=== PATIENT | female | born 1970 | race Caucasian/White ===

== ENCOUNTER 2021-01-06 08:01 | Emergency (ER) | payer SELFPAY ==
--- NOTE | 2021-01-06 08:05 | EDM.PDOC ---
ED HPI GENERAL MEDICAL PROBLEM - General Chief Complaint: Upper Extremity Injury/Pain Stated Complaint: INJURY LEFT MIDDLE FINGER Time Seen by Provider: 01/06/21 08:03 Source of Information: Reports: Patient History Limitations: Reports: No Limitations - History of Present Illness INITIAL COMMENTS - FREE TEXT/NARRATIVE: 50-year-old female presents for injury to left middle finger. Patient notes that roughly 3 weeks ago she had a crush injury to the finger. She is noted worsening pain and swelling in the distal end of the finger ever since. Today she knocked it in the shower and the pain intensely increased. She is noticed a couple days of some pus draining. She denies fevers or systemic symptoms. middle finger, L hand Pain Score (Numeric/FACES): 5 - Related Data Allergies Allergy/AdvReac Type Severity Reaction Status Date / Time morphine Allergy Itching Verified 01/06/21 08:19 Penicillins Allergy Swelling Verified 01/06/21 08:19 Home Meds: Home Meds Acetaminophen/oxyCODONE [Percocet 325-5 MG] 1 each PO Q4H PRN 3 Days #12 tab 01/06/21 [Rx] Sulfamethoxazole/Trimethoprim [Bactrim Ds Tablet] 1 each PO BID 7 Days #14 tablet 01/06/21 [Rx] Review of Systems - Review of Systems Review Of Systems: Comprehensive ROS is negative, except as noted in HPI. ED EXAM, GENERAL - Physical Exam Exam: See Below Exam Limited By: No Limitations General Appearance: Alert, WD/WN, No Apparent Distress Ears: Hearing Grossly Normal Throat/Mouth: Normal Voice, No Airway Compromise Head: Atraumatic, Normocephalic Neck: Normal Inspection Respiratory/Chest: No Respiratory Distress, No Accessory Muscle Use Cardiovascular: Normal Peripheral Pulses Extremities: Normal Inspection, Other (tender, erythematous, swollen DIP of left 3rd digit consistent with felon abscess) Neurological: Alert, Normal Gait Psychiatric: Normal Affect, Normal Mood Skin Exam: Warm, Dry, Intact, Normal Color ED TRAUMA EXTREMITY PROCEDURES - I&D Site: Left DIP 3rd digit Skin Prep: Providone-Iodine (Betadine) Local Anesthesia: Lidocaine: 1% Plain Local Anesthetic Volume: 5cc, Other (digital block) Area Incised With: 11 Blade Drainage: Purulent, Bloody, Moderate Amount Probed to Break Up Loculations: Yes Packed With: None Sterile Dressing: Adhesive Dressing Complications: No Course - Vital Signs Last Recorded V/S: Last Vital Signs Temp 96.6 F L 01/06/21 08:09 Pulse 92 01/06/21 08:09 Resp 16 01/06/21 08:09 BP 100/73 01/06/21 08:09 Pulse Ox 100 01/06/21 08:09 - Orders/Labs/Meds Orders: Active Orders 24 hr Category Date Time Status Fingers Third Digit Lt F2 [CR] Stat Exams 01/06/21 08:03 Taken Meds: Medications Discontinued Medications Generic Name Dose Route Start Last Admin Trade Name Donal PRN Reason Stop Dose Admin Lidocaine HCl 10 ml 01/06/21 08:20 01/06/21 08:28 Lidocaine 1% 5 Ml Sdv INJECT 01/06/21 08: 10 ml ONETIME ONE Administration - Re-Assessments/Exams Free Text/Narrative Re-Assessment/Exam: 01/06/21 08:24 X-ray imaging will be reviewed. Will digitally block and drain the felon. Will discharge on antibiotics 01/06/21 08:37 See procedure note for felon drainage. Will discharge on antibiotics. Departure - Departure Time of Disposition: 08:37 Disposition: Home, Self-Care 01 Condition: Good Clinical Impression: Felon of finger of left hand - Discharge Information Prescriptions: Sulfamethoxazole/Trimethoprim [Bactrim Ds Tablet] 1 each PO BID 7 Days #14 tablet Instructions: Paronychia, [id number] Referrals: PCP,None [Primary Care Provider] - Forms: ED Department Discharge Additional Instructions: You presented with pain in your fingertips that is consistent with a felon. A felon is a type of abscess in the end of a fingertip. I am not sure why it is called a felon. It was incised and drained with a moderate amount of pus coming out of the finger. We put on a dressing for you and I recommend that you keep this area clean twice a day and change the dressing as needed. We have also given you some bacitracin that you can put on it to help prevent infection. I also sent an oral antibiotic to your pharmacy that you will need to take for the next 7 days to help with infection. I have also sent some pain medication for the next couple of days to help with pain. Unfortunately with abscesses they can recur. I tried to get all of the pus out and we leave the wound open so that it can continue draining, but it is always possible that it can reaccumulate and would need to be drained again. If symptoms or not improving after antibiotics that he should come back to the emergency department and will drain it again. You can also follow-up with your primary care physician however I am not sure that they would be able to drain it in the office so you are always welcome to come back to the ED if things get worse. The following information is given to patients seen in the emergency department who are being discharged to home. This information is to outline your options for follow-up care. We provide all patients seen in our emergency department with a follow-up referral. The need for follow-up, as well as the timing and circumstances, are variable depending upon the specifics of your emergency department visit. If you don't have a primary care physician on staff, we will provide you with a referral. We always advise you to contact your personal physician following an emergency department visit to inform them of the circumstance of the visit and for follow-up with them and/or the need for any referrals to a consulting specialist. The emergency department will also refer you to a specialist when appropriate. T his referral assures that you have the opportunity for follow-up care with a specialist. All of these measure are taken in an effort to provide you with optimal care, which includes your follow-up. Under all circumstances we always encourage you to contact your private physician who remains a resource for coordinating your care. When calling for follow-up care, please make the office aware that this follow-up is from your recent emergency room visit. If for any reason you are refused follow-up, please contact the [facility] Emergency Department at and asked to speak to the emergency department charge nurse. Please follow up with your primary care physician. If you do not have a primary care physician, see below: [facility] [address] [place] [id number] [facility] [address] [place] [address] [facility] [address] [place] [address] Sepsis Event Note (ED) - Focused Exam Vital Signs: Vital Signs Temp Pulse Resp BP Pulse Ox 01/06/21 08:09 96.6 F L 92 16 100/73 100 - My Orders Last 24 Hours: My Active Orders 01/06/21 08:03 Fingers Third Digit Lt F2 [CR] Stat - Assessment/Plan Last 24 Hours: My Active Orders 01/06/21 08:03 Fingers Third Digit Lt F2 [CR] Stat
[2021-01-06] MEDS ORDERED: Bacitracin Oint 28.35 GM Tube TOP STA (08:37)
--- NOTE | 2021-01-06 08:51 | CR ---
Indication: Injury Comparison: None available. Technique: AP, oblique and lateral views left 3rd digit were obtained Findings: There is demonstration of osseous erosion of the distal 3rd phalanx. No large displaced fracture is appreciated. The joint spaces are grossly preserved. There is marked fusiform soft tissue swelling of the distal 3rd digit. Impression: Demonstration of osseous erosion of the distal 3rd phalanx with associated soft tissue swelling concerning for likely infectious or inflammatory process. Follow-up with a contrast-enhanced MRI may be useful for improved characterization. Dictated by Hilton Guillory MD @ Jan 06 2021 8:49AM Signed by Dr. Hilton Guillory @ Jan 06 2021 8:50AM
== END 2021-01-06 08:55 | disposition home or self-care (01) ==
LOC: MW.ED 08:01
DX: L03.012 Cellulitis of left finger (principal); Z88.5 Allergy status to narcotic agent; Z88.0 Allergy status to penicillin
CPT/HCPCS: 26011; 73140; 99283; A9270

== ENCOUNTER 2021-08-04 18:42 | Emergency (ER) | payer MEDICAID ==
--- NOTE | 2021-08-04 20:04 | PCM.EKG ---
#1 Interpretation EKG Date: 08/04/21 Time: 19:54 Rhythm: NSR Rate (Beats/Min): 101 [place]: Normal P-Wave: Present QRS: Normal ST-T: Normal QT: Normal FL/PQ Interval: 123 Comparison: NA - No Prior EKG EKG Interpretation Comments: normal EKG
[2021-08-04] MEDS ORDERED: Ondansetron 4 MG/2 ML SDV IVPUSH ONE (20:39)
[2021-08-04] MEDS ORDERED: Sodium Chloride 0.9% 1,000 ML IV ONE ×2 (20:39→22:27)
[2021-08-04] MEDS ORDERED: Ketorolac 30 MG/ML SDV IVPUSH ONE (20:43)
--- NOTE | 2021-08-04 20:45 | EDM.PDOC ---
ED HPI GENERAL MEDICAL PROBLEM - General Chief Complaint: Respiratory Problem Stated Complaint: COUGHING, BODY ACHES Time Seen by Provider: 08/04/21 20:39 Source of Information: Reports: Patient History Limitations: Reports: No Limitations - History of Present Illness INITIAL COMMENTS - FREE TEXT/NARRATIVE: 50-year-old female past medical history type 2 diabetes presents for multiple complaints. Patient states that over the last week she has noted feeling sick. She notes subjective fevers, body aches, nonproductive cough, shortness of breath, nausea, vomiting, diarrhea. Symptoms seem to be worsening. Generalized Pain Score (Numeric/FACES): 7 - Related Data Allergies Allergy/AdvReac Type Severity Reaction Status Date / Time morphine Allergy Itching Verified 08/04/21 19:51 Penicillins Allergy Swelling Verified 08/04/21 19:51 Home Meds: Home Meds Acetaminophen/oxyCODONE [Percocet 325-5 MG] 1 each PO Q4H PRN 3 Days #12 tab 01/06/21 [Rx] Sulfamethoxazole/Trimethoprim [Bactrim Ds Tablet] 1 each PO BID 7 Days #14 tablet 01/06/21 [Rx] Past Medical History Gastrointestinal History: Reports: None Genitourinary History: Reports: None Other RESEARCHER History: 3 d&c's, 1 Neurological History: Reports: Other (See Below) Other Neuro History: brain cyst Psychiatric History: Reports: Anxiety, Depression Endocrine/Metabolic History: Reports: Diabetes, Type II, Other (See Below) Other Endocrine/Metabolic History: pt states she's not taking med for DM - Past Surgical History GI Surgical History: Reports: Cholecystectomy Female Surgical History: Reports: Tubal Ligation Neurological Surgical History: Reports: Other (See Below) Other Neurological Surgeries/Procedures: Ventricular shunt Social & Family History - Family History Family Medical History: No Pertinent Family History - Tobacco Use Packs/Tins Daily: 1 - Caffeine Use Caffeine Use: Reports: Coffee ED ROS GENERAL - Review of Systems Review Of Systems: Comprehensive ROS is negative, except as noted in HPI. ED EXAM, GENERAL - Physical Exam Exam: See Below Exam Limited By: No Limitations General Appearance: Alert, WD/WN, No Apparent Distress, Other (Appears much older than stated age) Ears: Hearing Grossly Normal Throat/Mouth: Normal Voice, No Airway Compromise Head: Atraumatic, Normocephalic Respiratory/Chest: No Respiratory Distress, Lungs Clear, Normal Breath Sounds, No Accessory Muscle Use Cardiovascular: Normal Peripheral Pulses, Tachycardia GI/Abdominal: Soft, Non-Tender Extremities: Normal Inspection Neurological: Alert, Normal Cognition Psychiatric: Normal Affect, Normal Mood Skin Exam: Warm, Dry, Intact, Normal Color Course - Vital Signs Last Recorded V/S: Last Vital Signs Temp 97.4 F 08/04/21 19:47 Pulse 113 H 08/04/21 19:47 Resp 16 08/04/21 19:47 BP 81/50 L 08/04/21 19:47 Pulse Ox 100 08/04/21 19:47 - Orders/Labs/Meds Orders: Active Orders 24 hr Category Date Time Status Accu Check [Blood Glucose Check, Bedside] [RC] ONETIME Care 08/04/21 20:43 Active Dextrose 50% in Water Med 08/04/21 22:42 Active 50 ml IVPUSH ASDIRECTED PRN Glucagon,Human Recombinant [GlucaGen] Med 08/04/21 22:42 Active 1 mg IM ASDIRECTED PRN Potassium Chloride Riders [KCL in Water 20 MEQ/50 ML] Med 08/04/21 22:43 Activ e 20 meq Premix Bag 1 bag IV ONETIME Saline Lock Insert [OM.PC] Stat Oth 08/04/21 20:39 Ordered Medication Orders Dextrose/Water (50% Dextrose In Water 50 Ml Syringe) 50 ml IVPUSH ASDIRECTED PRN PRN Reason: Hypoglycemia Glucagon (Glucagon,Human Recombinant 1 Mg Vial) 1 mg IM ASDIRECTED PRN PRN Reason: Hypoglycemia Potassium Chloride 20 meq/ (Premix) 50 mls @ 25 mls/hr IV ONETIME ONE Stop: 08/05/21 00:42 Last Admin: 08/04/21 23:38 Dose: 25 mls/hr Documented by: SANDIP Labs: Laboratory Tests 08/04/21 08/04/21 08/04/21 Range/Units 20:35 22:05 22:05 WBC 6.25 (4.0-11.0) K/uL RBC 4.08 L (4.30-5.90) M/uL Hgb 13.5 (12.0-16.0) g/dL Hct 36.1 (36.0-46.0) % MCV 88.5 (80.0-98.0) fL MCH 33.1 H (27.0-32.0) pg MCHC 37.4 H (31.0-37.0) g/dL RDW Std Deviation 37.3 (28.0-62.0) fl RDW Coeff of Lyle 12 (11.0-15.0) % Plt Count 282 (150-400) K/uL MPV 10.00 (7.40-12.00) fL Neut % (Auto) 72.6 (48.0-80.0) % Lymph % (Auto) 18.2 (16.0-40.0) % [place] % (Auto) 8.8 (0.0-15.0) % Eos % (Auto) 0.2 (0.0-7.0) % Baso % (Auto) 0.2 (0.0-1.5) % Neut # (Auto) 4.5 (1.4-5.7) K/uL Lymph # (Auto) 1.1 (0.6-2.4) K/uL [place] # (Auto) 0.6 (0.0-0.8) K/uL Eos # (Auto) 0.0 (0.0-0.7) K/uL Baso # (Auto) 0.0 (0.0-0.1) K/uL Nucleated RBC % 0.0 /100WBC Nucleated RBCs # 0 K/uL VBG pH (7.31-7.41) VBG pCO2 (41-51) mmHG VBG pO2 mmHG VBG HCO3 (23-28) mEq/L VBG Total CO2 (24-29) mmol/L VBG Base Excess (-2.0-3.0) Sodium 125 L (136-145) mmol/L Potassium 3.4 L (3.5-5.1) mmol/L Chloride 83 L (98-107) mmol/L Carbon Dioxide 30.9 (21.0-32.0) mmol/L BUN 6 L (7.0-18.0) mg/dL Creatinine 1.0 (0.6-1.0) mg/dL Est Cr Clr Drug Dosing TNP Estimated GFR (MDRD) 59.2 ml/min Glucose 703 H* (74-106) mg/dL POC Glucose (70-99) mg/dL Lactic Acid (0.4-2.0) mmol/L Calcium 9.3 (8.5-10.1) mg/dL Total Bilirubin 1.3 H (0.2-1.0) mg/dL AST 15 (15-37) IU/L ALT 15 (14-63) IU/L Alkaline Phosphatase 92 (46-116) U/L Total Protein 8.0 (6.4-8.2) g/dL Albumin 2.9 L (3.4-5.0) g/dL Globulin 5.1 H (2.6-4.0) g/dL Albumin/Globulin Ratio 0.6 L (0.9-1.6) Urine Color Urine Appearance Urine pH (5.0-8.0) Ur Specific Yoder (1.001-1.035) Urine Protein (NEGATIVE) mg/dL Urine Glucose (UA) (NEGATIVE) mg/dL Urine Ketones (NEGATIVE) mg/dL Urine Occult Blood (NEGATIVE) Urine Nitrite (NEGATIVE) Urine Bilirubin (NEGATIVE) Urine Urobilinogen (<2.0) EU/dL Ur Leukocyte Esterase (NEGATIVE) Urine HCG, Qual (NEGATIVE) Ketones (NEG) SARS-CoV-2 RNA (RAYA) POSITIVE H (NEGATIVE) 08/04/21 08/04/21 08/04/21 Range/Units 22:05 22:12 22:20 WBC (4.0-11.0) K/uL RBC (4.30-5.90) M/uL Hgb (12.0-16.0) g/dL Hct (36.0-46.0) % MCV (80.0-98.0) fL MCH (27.0-32.0) pg MCHC (31.0-37.0) g/dL RDW Std Deviation (28.0-62.0) fl RDW Coeff of Lyle (11.0-15.0) % Plt Count (150-400) K/uL MPV (7.40-12.00) fL Neut % (Auto) (48.0-80.0) % Lymph % (Auto) (16.0-40.0) % [place] % (Auto) (0.0-15.0) % Eos % (Auto) (0.0-7.0) % Baso % (Auto) (0.0-1.5) % Neut # (Auto) (1.4-5.7) K/uL Lymph # (Auto) (0.6-2.4) K/uL [place] # (Auto) (0.0-0.8) K/uL Eos # (Auto) (0.0-0.7) K/uL Baso # (Auto) (0.0-0.1) K/uL Nucleated RBC % /100WBC Nucleated RBCs # K/uL VBG pH (7.31-7.41) VBG pCO2 (41-51) mmHG VBG pO2 mmHG VBG HCO3 (23-28) mEq/L VBG Total CO2 (24-29) mmol/L VBG Base Excess (-2.0-3.0) Sodium (136-145) mmol/L Potassium (3.5-5.1) mmol/L Chloride (98-107) mmol/L Carbon Dioxide (21.0-32.0) mmol/L BUN (7.0-18.0) mg/dL Creatinine (0.6-1.0) mg/dL Est Cr Clr Drug Dosing Estimated GFR (MDRD) ml/min Glucose (74-106) mg/dL POC Glucose > 525 H* (70-99) mg/dL Lactic Acid 2.0 (0.4-2.0) mmol/L Calcium (8.5-10.1) mg/dL Total Bilirubin (0.2-1.0) mg/dL AST (15-37) IU/L ALT (14-63) IU/L Alkaline Phosphatase (46-116) U/L Total Protein (6.4-8.2) g/dL Albumin (3.4-5.0) g/dL Globulin (2.6-4.0) g/dL Albumin/Globulin Ratio (0.9-1.6) Urine Color Urine Appearance Urine pH (5.0-8.0) Ur Specific Yoder (1.001-1.035) Urine Protein (NEGATIVE) mg/dL Urine Glucose (UA) (NEGATIVE) mg/dL Urine Ketones (NEGATIVE) mg/dL Urine Occult Blood (NEGATIVE) Urine Nitrite (NEGATIVE) Urine Bilirubin (NEGATIVE) Urine Urobilinogen (<2.0) EU/dL Ur Leukocyte Esterase (NEGATIVE) Urine HCG, Qual (NEGATIVE) Ketones NEGATIVE (NEG) SARS-CoV-2 RNA (RAYA) (NEGATIVE) 08/04/21 08/04/21 08/04/21 Range/Units 22:20 23:30 23:30 WBC (4.0-11.0) K/uL RBC (4.30-5.90) M/uL Hgb (12.0-16.0) g/dL Hct (36.0-46.0) % MCV (80.0-98.0) fL MCH (27.0-32.0) pg MCHC (31.0-37.0) g/dL RDW Std Deviation (28.0-62.0) fl RDW Coeff of Lyle (11.0-15.0) % Plt Count (150-400) K/uL MPV (7.40-12.00) fL Neut % (Auto) (48.0-80.0) % Lymph % (Auto) (16.0-40.0) % [place] % (Auto) (0.0-15.0) % Eos % (Auto) (0.0-7.0) % Baso % (Auto) (0.0-1.5) % Neut # (Auto) (1.4-5.7) K/uL Lymph # (Auto) (0.6-2.4) K/uL [place] # (Auto) (0.0-0.8) K/uL Eos # (Auto) (0.0-0.7) K/uL Baso # (Auto) (0.0-0.1) K/uL Nucleated RBC % /100WBC Nucleated RBCs # K/uL VBG pH 7.50 H (7.31-7.41) VBG pCO2 43 (41-51) mmHG VBG pO2 < 30 mmHG VBG HCO3 34 H (23-28) mEq/L VBG Total CO2 31 H (24-29) mmol/L VBG Base Excess 9.4 H (-2.0-3.0) Sodium (136-145) mmol/L Potassium (3.5-5.1) mmol/L Chloride (98-107) mmol/L Carbon Dioxide (21.0-32.0) mmol/L BUN (7.0-18.0) mg/dL Creatinine (0.6-1.0) mg/dL Est Cr Clr Drug Dosing Estimated GFR (MDRD) ml/min Glucose (74-106) mg/dL POC Glucose (70-99) mg/dL Lactic Acid (0.4-2.0) mmol/L Calcium (8.5-10.1) mg/dL Total Bilirubin (0.2-1.0) mg/dL AST (15-37) IU/L ALT (14-63) IU/L Alkaline Phosphatase (46-116) U/L Total Protein (6.4-8.2) g/dL Albumin (3.4-5.0) g/dL Globulin (2.6-4.0) g/dL Albumin/Globulin Ratio (0.9-1.6) Urine Color YELLOW Urine Appearance CLEAR Urine pH 6.5 (5.0-8.0) Ur Specific Yoder <= 1.005 (1.001-1.035) Urine Protein NEGATIVE (NEGATIVE) mg/dL Urine Glucose (UA) >=1000 (NEGATIVE) mg/dL Urine Ketones NEGATIVE (NEGATIVE) mg/dL Urine Occult Blood NEGATIVE (NEGATIVE) Urine Nitrite NEGATIVE (NEGATIVE) Urine Bilirubin NEGATIVE (NEGATIVE) Urine Urobilinogen 0.2 (<2.0) EU/dL Ur Leukocyte Esterase NEGATIVE (NEGATIVE) Urine HCG, Qual NEGATIVE (NEGATIVE) Ketones (NEG) SARS-CoV-2 RNA (RAYA) (NEGATIVE) 08/05/21 Range/Units 00:03 WBC (4.0-11.0) K/uL RBC (4.30-5.90) M/uL Hgb (12.0-16.0) g/dL Hct (36.0-46.0) % MCV (80.0-98.0) fL MCH (27.0-32.0) pg MCHC (31.0-37.0) g/dL RDW Std Deviation (28.0-62.0) fl RDW Coeff of Lyle (11.0-15.0) % Plt Count (150-400) K/uL MPV (7.40-12.00) fL Neut % (Auto) (48.0-80.0) % Lymph % (Auto) (16.0-40.0) % [place] % (Auto) (0.0-15.0) % Eos % (Auto) (0.0-7.0) % Baso % (Auto) (0.0-1.5) % Neut # (Auto) (1.4-5.7) K/uL Lymph # (Auto) (0.6-2.4) K/uL [place] # (Auto) (0.0-0.8) K/uL Eos # (Auto) (0.0-0.7) K/uL Baso # (Auto) (0.0-0.1) K/uL Nucleated RBC % /100WBC Nucleated RBCs # K/uL VBG pH (7.31-7.41) VBG pCO2 (41-51) mmHG VBG pO2 mmHG VBG HCO3 (23-28) mEq/L VBG Total CO2 (24-29) mmol/L VBG Base Excess (-2.0-3.0) Sodium (136-145) mmol/L Potassium (3.5-5.1) mmol/L Chloride (98-107) mmol/L Carbon Dioxide (21.0-32.0) mmol/L BUN (7.0-18.0) mg/dL Creatinine (0.6-1.0) mg/dL Est Cr Clr Drug Dosing Estimated GFR (MDRD) ml/min Glucose (74-106) mg/dL POC Glucose 406 H* (70-99) mg/dL Lactic Acid (0.4-2.0) mmol/L Calcium (8.5-10.1) mg/dL Total Bilirubin (0.2-1.0) mg/dL AST (15-37) IU/L ALT (14-63) IU/L Alkaline Phosphatase (46-116) U/L Total Protein (6.4-8.2) g/dL Albumin (3.4-5.0) g/dL Globulin (2.6-4.0) g/dL Albumin/Globulin Ratio (0.9-1.6) Urine Color Urine Appearance Urine pH (5.0-8.0) Ur Specific Yoder (1.001-1.035) Urine Protein (NEGATIVE) mg/dL Urine Glucose (UA) (NEGATIVE) mg/dL Urine Ketones (NEGATIVE) mg/dL Urine Occult Blood (NEGATIVE) Urine Nitrite (NEGATIVE) Urine Bilirubin (NEGATIVE) Urine Urobilinogen (<2.0) EU/dL Ur Leukocyte Esterase (NEGATIVE) Urine HCG, Qual (NEGATIVE) Ketones (NEG) SARS-CoV-2 RNA (RAYA) (NEGATIVE) Meds: Medications Generic Name Dose Route Start Last Admin Trade Name Donal PRN Reason Stop Dose Admin Dextrose/Water 50 ml 08/04/21 22:42 50% Dextrose In Water 50 Ml Syringe IVPUSH ASDIRECTED PRN Hypoglycemia Glucagon 1 mg 08/04/21 22:42 Glucagon,Human Recombinant 1 Mg Vial IM ASDIRECTED PRN Hypoglycemia Potassium Chloride 20 meq/ 50 mls @ 25 mls/hr 08/04/21 22:43 08/04/21 23:38 Premix IV 08/05/21 00:42 25 mls/hr ONETIME ONE Administration Discontinued Medications Generic Name Dose Route Start Last Admin Trade Name Donal PRN Reason Stop Dose Admin Sodium Chloride 1,000 mls @ 999 mls/hr 08/04/21 20:39 08/04/21 22:07 Normal Saline IV 08/04/21 21:39 999 mls/hr .Bolus ONE Administration Sodium Chloride 1,000 mls @ 999 mls/hr 08/04/21 22:27 08/04/21 23:05 Normal Saline IV 08/04/21 23:27 999 mls/hr .Bolus ONE Administration Insulin Human Regular 10 unit 08/04/21 22:42 08/04/21 23:11 Insulin Regular, Human 100 Units/Ml 10 Ml Vial IVPUSH 08/04/21 22:43 10 units ONETIME ONE Administration Protocol Ketorolac Tromethamine 15 mg 08/04/21 20:43 08/04/21 22:06 Ketorolac 30 Mg/Ml Sdv IVPUSH 08/04/21 20:44 15 mg ONETIME ONE Administration Ondansetron HCl 4 mg 08/04/21 20:39 08/04/21 22:07 Ondansetron 4 Mg/2 Ml Sdv IVPUSH 08/04/21 20:40 4 mg ONETIME ONE Administration Potassium Chloride 40 meq 08/04/21 22:43 08/04/21 23:11 Potassium Chloride 10% 20 Meq/15 Ml Soln 30 Ml Ud Cup PO 08/04/21 22:44 40 meq ONETIME ONE Administration - Re-Assessments/Exams Free Text/Narrative Re-Assessment/Exam: 08/04/21 20:44 We will get labs, Covid testing, chest x-ray. Will treat symptomatically with IV fluid bolus, Zofran, Toradol. 08/04/21 22:44 Patient has blood glucose in the 700s without evidence of DKA. She also has Covid. Will give to liter fluid bolus, 20 mEq potassium IV, 40 mEq potassium p.o., 10 units of insulin. 08/05/21 00:42 Will discharge patient with prescription for Metformin, Motrin. Will set up Regeneron monoclonal antibody infusion. Departure - Departure Time of Disposition: 00:42 Disposition: Home, Self-Care 01 Condition: Fair Clinical Impression: COVID-19, Poorly controlled diabetes mellitus - Discharge Information Instructions: COVID-19: What to Do If You Are Sick- [facility] (12/14/2020) Referrals: PCP,None [Primary Care Provider] - Forms: ED Department Discharge Additional Instructions: I have sent prescriptions for Motrin as well as Metformin to your pharmacy. You should also come back for the monoclonal antibody infusion. If you have worsening symptoms you should come back to the emergency department for reassessment. The following information is given to patients seen in the emergency department who are being discharged to home. This information is to outline your options for follow-up care. We provide all patients seen in our emergency department with a follow-up referral. The need for follow-up, as well as the timing and circumstances, are variable depending upon the specifics of your emergency department visit. If you don't have a primary care physician on staff, we will provide you with a referral. We always advise you to contact your personal physician following an emergency department visit to inform them of the circumstance of the visit and for follow-up with them and/or the need for any referrals to a consulting specialist. The emergency department will also refer you to a specialist when appropriate. This referral assures that you have the opportunity for follow-up care with a specialist. All of these measure are taken in an effort to provide you with optimal care, which includes your follow-up. Under all circumstances we always encourage you to contact your private physician who remains a resource for coordinating your care. When calling for follow-up care, please make the office aware that this follow-up is from your recent emergency room visit. If for any reason you are refused follow-up, please contact the [facility] Emergency Department at and asked to speak to the emergency department charge nurse. Please follow up with your primary care physician. If you do not have a primary care physician, see below: [facility] [address] [place] [address] My [facility] [address] [place] [address] [facility] [address] [place] [address] Sepsis Event Note (ED) - Evaluation Sepsis Screening Result: No Definite Risk - Focused Exam Vital Signs: Vital Signs Temp Pulse Resp BP Pulse Ox 08/04/21 19:47 97.4 F 113 H 16 81/50 L 100 - My Orders Last 24 Hours: My Active Orders 08/04/21 20:39 Saline Lock Insert [OM.PC] Stat 08/04/21 20:43 Accu Check [Blood Glucose Check, Bedside] [RC] ONETIME 08/04/21 22:42 Dextrose 50% in Water 50 ml IVPUSH ASDIRECTED PRN Glucagon,Human Recombinant [GlucaGen] 1 mg IM ASDIRECTED PRN 08/04/21 22:43 Potassium Chloride Riders [KCL in Water 20 MEQ/50 ML] 20 meq Premix Bag 1 bag IV ONETIME - Assessment/Plan Last 24 Hours: My Active Orders 08/04/21 20:39 Saline Lock Insert [OM.PC] Stat 08/04/21 20:43 Accu Check [Blood Glucose Check, Bedside] [RC] ONETIME 08/04/21 22:42 Dextrose 50% in Water 50 ml IVPUSH ASDIRECTED PRN Glucagon,Human Recombinant [GlucaGen] 1 mg IM ASDIRECTED PRN 08/04/21 22:43 Potassium Chloride Riders [KCL in Water 20 MEQ/50 ML] 20 meq Premix Bag 1 bag IV ONETIME
--- NOTE | 2021-08-04 22:01 | CR ---
INDICATION: Shortness breath and cough. COMPARISON: None available. FINDINGS: An erect single view of the chest was obtained at 21 29 hours. A right-sided [employer] shunt catheter is seen. The catheter appears to be intact, with no sign of [place] disconnection. The lungs are clear. No focal or diffuse infiltrates are present. The heart is normal in size. The mediastinum is normal in appearance. The osseous structures are normal in appearance for the patient`s age. IMPRESSION: No active disease seen in the chest. Dictated by Jasbir Dangelo MD @ 08/04/2021 9:59:12 PM (Electronically Signed)
[2021-08-04 22:36] LABS: BLOOD UREA NITROGEN,BUN 6 mg/dL (7.0-18.0); CARBON DIOXIDE,CO2 30.9 mmol/L (21.0-32.0); CHLORIDE,CL 83 mmol/L (98-107); POTASSIUM,K 3.4 mmol/L (3.5-5.1); SODIUM,NA 125 mmol/L (136-145)
[2021-08-04 22:37] LABS: GLUCOSE RANDOM 703 mg/dL (74-106)
[2021-08-04] MEDS ORDERED: 50% Dextrose in Water 50 ML Syringe IVPUSH PRN (22:42)
[2021-08-04] MEDS ORDERED: Glucagon,Human Recombinant 1 MG Vial IM PRN (22:42)
[2021-08-04] MEDS ORDERED: Insulin Regular, Human 100 Units/ML 10 ML Vial IVPUSH ONE (22:42)
[2021-08-04] MEDS ORDERED: Potassium Chloride 10% 20 MEQ/15 ML Soln 30 ML UD Cup PO ONE (22:43)
[2021-08-04] MEDS ORDERED: Potassium Chloride Riders 20 MEQ in Premix Bag 1 BAG IV ONE (22:43)
== END 2021-08-05 01:08 | disposition home or self-care (01) ==
LOC: MW.ED 18:42
DX: U07.1 COVID-19 (principal); E11.65 Type 2 diabetes mellitus with hyperglycemia; Z72.0 Tobacco use; Z88.5 Allergy status to narcotic agent; Z88.0 Allergy status to penicillin
CPT/HCPCS: 36415; 71045; 80053; 81003; 81025; 82009; 82803; 82947; 83605; 85025; 87635; 93005; 96365; 96375; 99285; A9270; J1885; J2405; J3480; J7030; J1815-GY; U0002

== ENCOUNTER 2022-07-15 16:51 | Emergency (ER) | payer MEDICAID, OTHER ==
[2022-07-15] MEDS: Lactated Ringers 1,000 ML IV STA ×2 (18:08→18:09)
[2022-07-15 18:47] LABS: BLOOD UREA NITROGEN,BUN 6 mg/dL (7.0-18.0); CARBON DIOXIDE,CO2 33.7 mmol/L (21.0-32.0); CHLORIDE,CL 88 mmol/L (98-107); LIPASE 68 U/L (73-393); POTASSIUM,K 2.6 mmol/L (3.5-5.1); SODIUM,NA 132 mmol/L (136-145)
[2022-07-15 18:48] LABS: ESTIMATED GFR 90 mL/min (>60); GLUCOSE RANDOM 531 mg/dL (74-106)
[2022-07-15] MEDS ORDERED: 50% Dextrose in Water 50 ML Syringe IVPUSH PRN (19:04)
[2022-07-15] MEDS ORDERED: Glucagon,Human Recombinant 1 MG Vial IM PRN (19:04)
[2022-07-15] MEDS: Potassium Chloride 10% 20 MEQ/15 ML Soln 30 ML UD Cup PO ONE (19:15)
[2022-07-15] MEDS: Insulin Regular, Human 100 Units/ML 10 ML Vial IVPUSH STA (19:16)
[2022-07-15] MEDS: cefTRIAXone 1 GM in Sodium Chloride 0.9% 50 ML IV ONE (19:16)
== END 2022-07-15 21:44 | disposition home or self-care (01) ==
LOC: MW.ED 16:51
DX: N39.0 Urinary tract infection, site not specified (principal); E11.65 Type 2 diabetes mellitus with hyperglycemia; R53.1 Weakness; E87.6 Hypokalemia; Z88.0 Allergy status to penicillin; Z88.6 Allergy status to analgesic agent; Z20.822 Contact with and (suspected) exposure to COVID-19
CPT/HCPCS: 36415; 80053; 80305; 80307; 81001; 82009; 82803; 82947; 83605; 83690; 83735; 84443; 84484; 85025; 85610; 87040; 87635; 96361; 96365; 99284; A9270; J0696; J1815; J7120; 93010; U0002